=== PATIENT | male | born 1995 | race Hispanic/Latino ===

== ENCOUNTER 2022-05-04 10:44 | Day surgery (SDC) | payer OTHER ==
[~2022-05-04] VITALS: Ht 170.2 cm; Wt 90.7 kg
[~2022-05-04 10:44] MED LIST: BACTRIM DS1 TAB PO; LORTAB 5/3255 MG PO
[2022-05-04] MEDS ORDERED: PERCOCET 5/321 COMBO PO (12:23)
[2022-05-04 13:32] VITALS: BP 103/77
== END 2022-05-04 12:06 | disposition home or self-care (01) | DRG 572 ==
LOC: ORM 10:44
PROVIDERS: ATTEND Surgery
PROC: 0JB90ZZ Excision of Buttock Subcutaneous Tissue and Fascia, Open Approach (ICD-10-PCS; principal; 2022-05-04)
DX: L05.91 Pilonidal cyst without abscess (principal)
CPT/HCPCS: C9290